=== PATIENT | female | born 1940 | race Caucasian/White ===

== ENCOUNTER 2020-01-28 17:00 | Emergency (ER) | payer MEDICARE, SELFPAY ==
[2020-01-28 17:30] VITALS: BP 140/80; PULSE 102; RESP 18; TEMP 36.1; O2SAT 94
--- NOTE | 2020-01-28 17:37 | ED.GENADULT ---
HPI - General Adult General Chief complaint: Wound/Laceration Stated complaint: Cat Bite Left Hand Time Seen by Provider: 01/28/20 18:07 Source: patient and RN notes reviewed Mode of arrival: ambulatory Limitations: no limitations History of Present Illness HPI narrative: 79-year-old female presents with complaints of cat bite to LT dorsal hand for 1 day. No treatment. Laurie says the cat is her 15 year old [place] with up to date vaccines. Mild abrasions with discomfort, swelling, and redness. No pain. Denies tingling or numbness. Denies immobility. No exacerbating factors. No relieving factors. Denies altered sensation, back pain, neck pain, and suspected foreign body. Denies falling, hitting head, or loss of consciousness. Remains active. Tetanus vaccine up-to-date. Right hand dominant. Denies fever, chills, headaches, weakness, fatigue, or myalgia. Denies chest pain or dyspnea. Denies cough, rhinorrhea, congestion, sore throat, nausea, vomiting, abdominal pain, and diarrhea. Tolerating po intake well. Denies recent traveling. Denies concerns for COVID-19 or exposures been home since [id number] order except for essential household needs and returned home. Some parts of this dictation were generated by voice recognition software and may contain typographical and/or grammatical inaccuracies. Related Data Home Medications Medication Instructions Recorded Confirmed bupropion HCl PO 01/28/20 clopidogrel 01/28/20 diclofenac sodium PO 01/28/20 dicyclomine mg 01/28/20 hydroxychloroquine 01/28/20 losartan-hydrochlorothiazide tablet 01/28/20 methotrexate sodium 01/28/20 metoprolol succinate PO 01/28/20 Allergies Allergy/AdvReac Type Severity Reaction Status Date / Time fentanyl AdvReac Severe Nausea and Verified 04/07/18 14:27 Vomiting morphine AdvReac Severe SEVERE Verified 04/07/18 14:27 NAUSEA AND VOMITING Review of Systems Review of Systems: Narrative: CONSTITUTIONAL: Denies fever, chills, sweats. EYES: Denies visual changes, redness, discharge. ENT: Denies rhinorrhea, congestion, sore throat, otalgia. CARDIOVASCULAR: Denies chest pain, palpitations, edema. RESPIRATORY: Denies dyspnea, wheezing, cough. GASTROINTESTINAL: Denies abdominal pain, nausea, vomiting, diarrhea. GENITOURINARY: Denies dysuria, hematuria, abnormal discharge. SKIN: Denies rash or itching. Complains of animal bite to LT dorsal hand with mild redness, swelling, discomfort. No drainage MUSCULOSKELETAL: Denies acute back pain, joint pain, or myalgia. NEUROLOGIC: Denies numbness or focal weakness. PSYCHIATRIC: Denies anxiety or depression. All other systems reviewed are negative, except as documented in HPI and below. [facility] Past Medical History Medical History (Updated 01/29/20 @ 00:01 by Guillaume Jain) Arthritis delivery delivered Ganglion cyst Rickets Surgical History Surgical History (Updated 01/28/20 @ 18:33 by BOLIVAR Lunsford) H/O section X2 History of elbow surgery Left History of hip replacement bilateral History of hysterectomy History of knee replacement bilateral History of neck surgery Family History Family History Mother Cerebrovascular accident Sibling Cerebrovascular accident Social History Social History Smoking status: Never smoker Second hand tobacco smoke exposure: No Alcohol intake: current Substance use: never Living arrangements: alone Occupation/Education: retired Gender identity (if verbalized by the patient): Female Comments At time of signature, agree with nurse past medical, surgical, social, and family history. There is no relevant family history pertinent to the presenting complaint. Exam Narrative: Exam Narrative: GENERAL: This is a well-nourished, well-developed patient, in no apparent di
== END 2020-01-28 18:20 | disposition home or self-care (01) ==
PROVIDERS: Emergency Provider Nurse Practitioner Family
DX: S61.452A Open bite of left hand, initial encounter (principal); W55.01XA Bitten by cat, initial encounter; I10 Essential (primary) hypertension
CPT/HCPCS: 99213; G0463